=== PATIENT | female | born 1960 | race Caucasian/White ===

== ENCOUNTER 2019-12-18 11:29 | Emergency (ER) | payer SELFPAY ==
[~2019-12-18] VITALS: Ht 157.5 cm; Wt 58.0 kg
[~2019-12-18 11:29] MED LIST: atorvastatin; augmentin; blood pressure med
[2019-12-18 12:57] VITALS: BP 129/75
--- NOTE | 2019-12-18 12:59 | NUR ---
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 wound repacked by ariel garcia, dressed by this rn. pt given dc instructions and wound care supplies/education. pt tolerated well. pt ambulatory to dc desk with steady gait, nadn at dc.
== END 2019-12-18 12:59 | disposition home or self-care (01) ==
LOC: ED 12:00
DX: K61.0 Anal abscess (principal)
CPT/HCPCS: 99282